=== PATIENT | female | born 2000 | race Caucasian/White ===

== ENCOUNTER 2022-03-13 09:49 | Emergency (ER) | payer BC ==
[2022-03-13 10:49] LABS: #Basophils 0.1 10x3/uL (0.0-0.2); #Eosinphils 0.4 10x3/uL (0.0-0.5); #Monocytes 0.5 10x3/uL (0.0-1.1); #Neutrophils 7.2 10x3/uL (1.5-8.4); %Basophils 0.7 % (0.0-2.0); %Eosinophils 3.7 % (0.0-6.0); %Lymphocytes 17.1 % (18.0-47.0); %Monocytes 4.7 % (0.0-10.0); %Neutrophils 73.6 % (40.0-75.0); Hemoglobin 13.7 g/dL (12.0-15.5); Mean Corpuscular HGB CONC 33.7 g/dL (32.0-36.0); Mean Corpuscular Hemoglobin 28.5 pg (27.0-33.0); Mean Corpuscular Volume 84.8 fl (81.6-98.3); Mean Platelet Volume 10.2 fl (7.4-10.4); Platelet Count 399 10x3/uL (150-450); RBC Distribution Width 11.8 % (11.5-14.5); White Blood Cell (WBC) Count 9.8 10x3/uL (3.5-10.5)
[2022-03-13 10:54] LABS: Bilirubin Neg (Negative); Blood, Urine 250 (Negative); Clarity Clear (Clear); Glucose, Urine (Dipstick) Normal (Negative); Ketone, Urine Negative (Negative); Leukocyte 25 (Negative); Nitrite Negative (Negative); Protein, Urine (Dipstick) Negative (Neg-Trace)
[2022-03-13 11:08] LABS: Bacteria/HPF 1+ HPF (None Seen); Mucous/LPF 2+ LPF (<2+); Squamous Epithelial 0-3 HPF (0-3); WBC/HPF 0-3 HPF (0-3)
== END 2022-03-13 11:48 | disposition home or self-care (01) ==
LOC: CSHERS 09:49
DX: O20.0 Threatened abortion (principal); Z3A.01 Less than 8 weeks gestation of pregnancy
CPT/HCPCS: 36415; 76856; 81003; 81015; 84702; 85025; 86900; 86901